=== PATIENT | male | born 1935 | race Caucasian/White ===

== ENCOUNTER → 2017-02-05 | Outpatient (CLI) | payer OTHER ==
[~2017-02-05] MED LIST: ACETAMINOPHN-T1 EACH PO; CELEBREX200 MG PO; CLARITIN10 M3 PO; COUMADIN2 MG PO; COUMADIN4 MG PO; DIOVAN320 MG PO; FLONASE16 G1 BOTH NARES; FUROSEMIDE40 MG PO; GLIMEPIRIDE1 MG PO; HYDROCODON-ACE1 EAC7 PO; IRBESARTAN300 MG PO; IRON325 M1 PO; JANUVIA100 MG PO; JANUVIA25 M1 PO; LIPITOR80 MG PO; LOVENOX80 MG/0.8 SC; METOPROLOL SUC100 MG PO; NEXIUM40 MG PO; NIFEDIPINE ER90 MG PO; WARFARIN SODIUM1 MG PO; WARFARIN SODIUM5 MG PO; ZETIA10 MG PO
== END | disposition home or self-care (01) ==
LOC: RES 01-24 13:00
DX: J98.4 Other disorders of lung (principal)
CPT/HCPCS: 94060; 94726; 94729

== ENCOUNTER 2017-08-24 21:14 | Emergency (ER) | payer OTHER ==
[~2017-08-24] VITALS: Ht 172.7 cm; Wt 87.6 kg
[2017-08-24 22:52] LABS: HEMATOCRIT 36.4 % (38.0-50.0); HEMOGLOBIN 12.1 G/DL (12.5-16.6); MCH 28.5 PG (29.0-34.0); MCHC 33.2 G/DL (30.0-36.0); MCV 85.8 FL (86-99); PLATELET COUNT 169 K/uL (156-360); RBC DIS.WIDTH-CV 14.9 % (11.8-14.6); RBC DIS.WIDTH-SD 47.1 % (39-53); RED BLOOD COUNT 4.24 M/uL (4.00-5.50); WHITE BLOOD COUNT 7.1 K/uL (4.1-10.2)
[2017-08-24 23:01] LABS: CHLORIDE 107 mEq/L (99-109); SODIUM 138 mEq/L (136-147)
[2017-08-24 23:02] LABS: INTER. NORMALIZED RATIO 3.9
[2017-08-24 23:03] LABS: GLUCOSE 181 mg/dL (70-99)
[2017-08-24 23:07] LABS: CREATININE 1.7 mg/dL (0.6-1.3); GFR ESTIMATE (CALCULATED) 41 mL/min/ (58.99-99999)
[2017-08-24 23:08] LABS: UREA NITROGEN (BUN) 29 mg/dL (9-23)
[2017-08-25] VITALS: BP 141/84
== END 2017-08-25 00:03 | disposition home or self-care (01) ==
LOC: EME 21:14
PROVIDERS: Physician Assistant
PROC: 0S9C3ZZ Drainage of Right Knee Joint, Percutaneous Approach (ICD-10-PCS; principal; 2017-08-24)
DX: M25.461 Effusion, right knee (principal); M17.11 Unilateral primary osteoarthritis, right knee; I10 Essential (primary) hypertension; E11.9 Type 2 diabetes mellitus without complications; K21.9 Gastro-esophageal reflux disease without esophagitis; Z79.01 Long term (current) use of anticoagulants; Z87.891 Personal history of nicotine dependence; Z87.442 Personal history of urinary calculi; Z95.2 Presence of prosthetic heart valve; Z96.652 Presence of left artificial knee joint
CPT/HCPCS: 73564; 80048; 85027; 85610; 93971; 99281; 99284